=== PATIENT | male | born 1955 | race Two or more races ===

== ENCOUNTER 2024-05-02 14:06 | Emergency (ER) | payer OTHER ==
[2024-05-02 14:16] VITALS: BP 141/67; PULSE 68; RESP 19; TEMP 98.6; BMI 25.7
[2024-05-02] MEDS: TETRACAINE 0.5% HCL 0.6ML DROPPER.BOTTLE OD ONE (15:30)
[2024-05-02] MEDS: FLUORESCEIN NA 1 EA STRIP OD ONE (15:30)
== END 2024-05-02 15:32 | disposition home or self-care (01) ==
LOC: JERFT 14:06
DX: H57.8A1 Foreign body sensation, right eye (principal)
CPT/HCPCS: 99283-25